=== PATIENT | female | born 1950 | race Caucasian/White ===

== ENCOUNTER 2016-12-13 07:15 | Day surgery (SDC) | payer OTHER ==
[2016-12-05 09:20] VITALS: BMI 23.3
[2016-12-13] MEDS ORDERED: PROPOFOL 20 ML ONE ×2 (07:25)
[2016-12-13] MEDS ORDERED: LIDOCAINE HCL/PF 2% SDV 5ML VIAL ONE (07:26)
[2016-12-13 07:31] VITALS: TEMP 97.4
[2016-12-13 09:26] VITALS: BP 104/56; PULSE 60
== END 2016-12-13 09:30 | disposition home or self-care (01) ==
LOC: FASU-ENDO 07:15
PROVIDERS: ATTEND Internal Medicine Gastroenterology
PROC: 0DJD8ZZ Inspection of Lower Intestinal Tract, Via Natural or Artificial Opening Endoscopic (ICD-10-PCS; principal; 2016-12-13 08:32)
DX: Z12.11 Encounter for screening for malignant neoplasm of colon (principal); K57.30 Diverticulosis of large intestine without perforation or abscess without bleeding